=== PATIENT | male | born 1975 | race Caucasian/White ===

== ENCOUNTER → 2016-09-24 | Outpatient (CLI) | payer OTHER ==
[~2016-09-24] MED LIST: ALBUTEROL0.09 MG/A2 IH; AMOXICILLIN500 MG PO; ATIVAN1 MG PO; CYMBALTA30 MG PO; FLOMAX0.4 MG PO; IBU-8800 MG PO; MEDROL DOSEPAK4 MG PO; NORFLEX100 MG PO; PERCOCET 325 MG1 TA2 PO; PROTONIX40 MG PO; VICODIN 5/500 505 MG PO; VICODIN ES 7501 TAB PO; ZOFRAN4 MG PO
== END | disposition home or self-care (01) ==
LOC: US 10:14
DX: N50.812 Left testicular pain (principal)